=== PATIENT | female | born 1990 | race Caucasian/White ===

== ENCOUNTER → 2021-05-08 14:25 | Outpatient (BNVA) | payer MEDICAID, SELFPAY | PROVIDERS: Family Provider Family Medicine; Visit Provider Nurse Practitioner Women's Health | DX: N92.6 Irregular menstruation, unspecified (principal) | CPT/HCPCS: 81025 ==

== ENCOUNTER → 2021-05-30 09:29 | Outpatient (BNVA) | payer MEDICAID, SELFPAY | PROVIDERS: Family Provider Family Medicine; Visit Provider Nurse Practitioner Women's Health | DX: Z34.80 Encounter for supervision of other normal pregnancy, unspecified trimester (principal) | CPT/HCPCS: 81000 ==

== ENCOUNTER → 2021-06-19 14:54 | Outpatient (BNVA) | payer MEDICAID, SELFPAY | PROVIDERS: Family Provider Family Medicine; Visit Provider Obstetrics & Gynecology | DX: Z34.80 Encounter for supervision of other normal pregnancy, unspecified trimester (principal) | CPT/HCPCS: 80307; 81000; 85027; 86592; 86762; 86803; 86850; 86900; 87086; 87340 ==

== ENCOUNTER → 2021-07-02 10:32 | Outpatient (BNVA) | payer MEDICAID, SELFPAY | PROVIDERS: Family Provider Family Medicine; Visit Provider Obstetrics & Gynecology | DX: Z34.90 Encounter for supervision of normal pregnancy, unspecified, unspecified trimester (principal) | CPT/HCPCS: 84315; 87491; 87591 ==

== ENCOUNTER → 2021-07-25 09:35 | Outpatient (BNVA) | payer MEDICAID, SELFPAY | PROVIDERS: Family Provider Family Medicine; Visit Provider Nurse Practitioner Women's Health | DX: Z34.80 Encounter for supervision of other normal pregnancy, unspecified trimester (principal) | CPT/HCPCS: 81000 ==

== ENCOUNTER → 2021-09-02 13:00 | Outpatient (BNVA) | payer MEDICAID, SELFPAY | PROVIDERS: Family Provider Family Medicine; Visit Provider Obstetrics & Gynecology | DX: Z34.80 Encounter for supervision of other normal pregnancy, unspecified trimester (principal) | CPT/HCPCS: 81000 ==

== ENCOUNTER → 2021-09-17 11:57 | Outpatient (BNVA) | payer MEDICAID, SELFPAY | PROVIDERS: Family Provider Family Medicine; Visit Provider Nurse Practitioner Women's Health | DX: Z34.80 Encounter for supervision of other normal pregnancy, unspecified trimester (principal) | CPT/HCPCS: 81000 ==

== ENCOUNTER → 2021-10-01 13:47 | Outpatient (BNVA) | payer MEDICAID, SELFPAY | PROVIDERS: Family Provider Family Medicine; Visit Provider Obstetrics & Gynecology | DX: Z36.86 Encounter for antenatal screening for cervical length (principal) | CPT/HCPCS: 76817 ==

== ENCOUNTER → 2021-10-15 09:45 | Outpatient (BNVA) | payer MEDICAID, SELFPAY | PROVIDERS: Family Provider Family Medicine; Visit Provider Obstetrics & Gynecology | DX: Z34.80 Encounter for supervision of other normal pregnancy, unspecified trimester (principal) | CPT/HCPCS: 82950; 84315; 85025 ==

== ENCOUNTER → 2021-10-21 08:06 | Outpatient (BNVA) | payer MEDICAID, SELFPAY | PROVIDERS: Family Provider Family Medicine; Visit Provider Obstetrics & Gynecology | DX: Z34.80 Encounter for supervision of other normal pregnancy, unspecified trimester (principal) | CPT/HCPCS: 82951; 82952 ==

== ENCOUNTER → 2021-10-30 10:31 | Outpatient (BNVA) | payer MEDICAID, SELFPAY | PROVIDERS: Family Provider Family Medicine; Visit Provider Obstetrics & Gynecology | DX: Z34.80 Encounter for supervision of other normal pregnancy, unspecified trimester (principal) | CPT/HCPCS: 81000; 87086 ==

== ENCOUNTER → 2021-11-19 10:15 | Outpatient (BNVA) | payer MEDICAID, SELFPAY | PROVIDERS: Family Provider Family Medicine; Visit Provider Obstetrics & Gynecology | DX: Z34.80 Encounter for supervision of other normal pregnancy, unspecified trimester (principal) | CPT/HCPCS: 81000 ==

== ENCOUNTER → 2021-12-10 10:35 | Outpatient (BNVA) | payer MEDICAID, SELFPAY | PROVIDERS: Family Provider Family Medicine; Visit Provider Obstetrics & Gynecology | DX: Z34.80 Encounter for supervision of other normal pregnancy, unspecified trimester (principal); Z3A.00 Weeks of gestation of pregnancy not specified | CPT/HCPCS: 81000 ==

== ENCOUNTER → 2021-12-18 14:12 | Outpatient (BNVA) | payer MEDICAID, SELFPAY | PROVIDERS: Family Provider Family Medicine; Visit Provider Obstetrics & Gynecology | DX: Z34.80 Encounter for supervision of other normal pregnancy, unspecified trimester (principal) | CPT/HCPCS: 81000; 87081 ==

== ENCOUNTER → 2021-12-23 14:43 | Outpatient (BNVA) | payer MEDICAID, SELFPAY | PROVIDERS: Family Provider Family Medicine; Visit Provider Obstetrics & Gynecology | DX: Z34.80 Encounter for supervision of other normal pregnancy, unspecified trimester (principal) | CPT/HCPCS: 81000 ==

== ENCOUNTER 2022-01-01 11:32 | Inpatient (IN) | payer MEDICAID, SELFPAY ==
[2022-01-01] VITALS (37 sets, daily range): BP systolic 89–139; BP diastolic 54–95; PULSE 72–114; RESP 15–18; TEMP 36.1–36.8; O2SAT 90–99; BMI 32.8
[2022-01-01] MEDS: lactated ringers 1,000 ML 999 ML IV (11:15)
[2022-01-01 11:55] LABS: Basophils % 0.3 %; Eosinophils # 0.1 10^3/uL (0.0-0.8); Eosinophils % 0.5 %; Hematocrit 36.5 % (37.0-47.0); Hemoglobin 12.1 g/dL (11.5-15.3); Lymphocytes # 1.5 10^3/uL (0.8-4.8); Lymphocytes % 12.6 %; Mean Corpuscular HGB Conc 33.2 g/dL (30.0-36.0); Mean Corpuscular Hemoglobin 29.4 pg (28.0-34.0); Mean Corpuscular Volume 88.6 fl (81-99); Mean Platelet Volume 9.3 fL (7.4-10.4); Monocytes % 8.3 %; Neutrophils # 9.39 10^3/uL (1.8-7.7); Neutrophils % 77.6 %; Nucleated Red Blood Cells % 0 %; Platelet Count 300 10^3/cmm (130-400); Red Blood Count 4.12 10^6/uL (4.1-5.3); Red Cell Distribution Width 13.9 % (12.1-15.1); White Blood Count 12.1 10^3/uL (4.0-10.0)
--- NOTE | 2022-01-01 12:20 | W.PM.OPSUD ---
Surgery/Procedure H&P Update DATE OF PROCEDURE: January 01, 2022 DATE H&P PERFORMED: 12/23/21 H&P UPDATE INFORMATION: I have reviewed H&P completed within last 30 days, I have examined patient prior to procedure and Changes to prior documentation as noted here CHANGES TO PREVIOUS DOCUMENTATION: The patient presented in active labor. Cervix /-2 PLANNED PROCEDURE: Related Problem List Diagnoses (1) Tobacco use in : Qualifiers: Trimester: first trimester Qualified Code(s): O99.331 - Smoking (tobacco) complicating , first trimester (2) Supervision of other normal :
[2022-01-01] MEDS: lactated ringers 1,000 ML 125 ML IV (12:50)
--- NOTE | 2022-01-01 12:59 | P.ANESASSM_ITS ---
Pre-Anesthetic Assessment Height/Weight: Height 1.55 m Temp Pulse BP Pulse Ox 97.0 F L 73 100/75 90 01/01/22 10:45 01/01/22 12:56 01/01/22 12:56 01/01/22 12:32 Familial anesthetic complications: None Was Beta Anuradha taken within 24 hours: N/A Was Clonidine taken within 24 hours: N/A Social Tobacco and No alcohol Exam alert, oriented x 3, clear to auscultation bilaterally and regular rate & rhythm Airway Submandibular: within normal limits Cervical ROM: within normal limits Mallampati: Class II Dentition: chipped Anesthetic Plan ASA status: 2 Anesthesia: Regional (specify below) (Labor epidural) Risk of > 500 ml blood loss (7ml/kg in children): No Medications/Allergies Home Medications Medication Instructions Recorded Confirmed Last Taken Type prenat.vits,adama,[id number] 1 tab PO DAILY 07/02/21 12/23/21 Unknown History breast pump (Pump In Style #1 ea 10/30/21 12/23/21 Unknown Rx Advanced) calcium carbonate 300 mg (750 mg) 300 mg PO QID PRN tab 12/10/21 12/23/21 Unkno wn History chewable tablet (Tums Extra Strength Smoothies) Allergies Allergy/AdvReac Type Severity Reaction Status Date / Time codeine AdvReac abdomen Verified 12/23/21 14:30 cramping-patient has taken Tylenol 3 without problem Current Medications Generic Name Dose Route Start Last Admin Trade Name Freq PRN Reason Stop Dose Admin Ropivacaine 200 mg in 100 mls @ 13 mls/hr 01/01/22 12:00 01/01/22 12:37 Naropin Premix EPIDURAL 13 mls/hr .Q7H42M CESAR Administration Lactated Ringer's 1,000 mls @ 999 mls/hr 01/01/22 11:54 01/01/22 12:50 Lactated Ringers IV 125 mls/hr .Q1H1M PRN Administration See label comments [facility] Medical History No pertinent past medical history Denies diabetes, asthma, hypertension, seizures, DVT/PE PCP: CASSIE Dang Surgical History History of loop electrical excision procedure (LEEP) (~2008) Hx of cholecystectomy (~2010) Laparoscopic procedure in 2000 Hx of wisdom tooth extraction (~2009) Family History Grandfather Colon cancer Maternal--dx age 60's Heart disease Maternal Hypercholesteremia Maternal Hypertension Maternal Stroke Maternal Family/Other Diabetes Maternal Aunt Grandmother Heart disease Maternal Hypertension Maternal Denies family history of Ovarian cancer Breast cancer Uterine cancer Thyroid disease Data Anesthesia : 01/01/22 11:20 Short CBC 01/01/22 Range/Units 11:20 WBC 12.1 H (4.0-10.0) 10^3/uL Hgb 12.1 (11.5-15.3) g/dL Hct 36.5 L (37.0-47.0) % MCV 88.6 (81-99) fl Plt Count 300 (130-400) 10^3/cmm Neut % (Auto) 77.6 % Neut # (Auto) 9.39 H (1.8-7.7) 10^3/uL Cardiac Studies: No Data to Display
--- NOTE | 2022-01-01 13:04 | ANES.PROC ---
Anesthesia Procedures Procedure/Date: 01/01/22 Epidural: Time Out Performed: Yes Consents Signed: Procedure Consent Consent: requested by attending/covering physician, from patient, risks and benefits reviewed and patient agrees to proceed Lumbar Level: L3-L4 Epidural position: sitting Epidural procedure: sterile prep of area, 1% lidocaine to numb the area, negative for paresthesia passed, neg for paresthesia, test dose given, 1.5% xylocaine 1:200k epi, placed PCEA, no systemic response, sterile dressing applied and 0.2% Ropiavacaine @ mls/hr (13) Additional Comments: JOE at 5cm, cath at 10cm, bolused 5mls 2% lido PF
[2022-01-01] MEDS: oxytocin 30 UNIT/500 ML BAG 600 UNIT IV (13:12)
--- NOTE | 2022-01-01 13:35 | P.PCNOB_ITS ---
Delivery Note: Date of delivery: January 01, 2022 Pre-delivery diagnoses: iup @ 38 weeks and 6 days, active labor Post-delivery diagnoses: same-delivered Procedure: Delivering Physician: kelley Estimated blood loss (mL): 50 Findings: Term female in the PERRY presentation with a single nuchal cord at . Pre-Delivery Course: The patient was admitted in active labor. On admission, she was having decelerations and a fluid bolus was given. That resolved the decelerations. She received an epidural for pain management. Her water broke spontaneously and her cervix was found to be completely dilated. She began to push. Delivery: The patient had complete cervical dilation and began to push. The was a prolonged deceleration to the 60's. I had the patient push continuously until the head delivered. The head delivered in the PERRY position over an intact perineum under epidural anesthesia. The nose and mouth were bulb suctioned. The shoulders and body delivered atraumatically. The baby was placed onto the mother's abdomen. The cord was quickly clamped and cut. The baby was taken for resuscitation. Cord blood was obtained. The placenta delivered spontaneously. It was inspected and found to be intact. Inspection of the perineum revealed lacerations. Estimated blood loss 50 mL. Apgars on baby were 6 at 1 minute and 9 at 5 minutes. Weight of baby is 6 pounds 12 ounces. Mother and baby were stable post delivery. 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
--- NOTE | 2022-01-01 17:51 | ANE.PACU2 ---
Inpatient post-anesthesia follow up: Airway intact: Yes Vital signs: Temperature 97.0 F Pulse Rate 97 Respiratory Rate 15 Blood Pressure 139/75 Pulse Oximetry 90 Oxygen Delivery Me thod Room Air Oxygen Flow Rate Fraction of Inspir ed Oxygen Hydration adequate: Yes Nausea and vomiting: No Pain level: 2 Mental status: Baseline
[2022-01-01] MEDS: benzocaine-menthol 78 gm Canister 1 SPRAY TOPICAL (18:27)
[2022-01-01] MEDS: docusate sodium 100 mg Capsule PO (18:28)
[2022-01-01] MEDS: ibuprofen 800 mg tablet PO ×2 (18:28→20:12)
[2022-01-01] MEDS: lanolin oint 7 gm 1 APPLIC TOPICAL (18:28)
[2022-01-02 03:09] LABS: Hematocrit 30.5 % (37.0-47.0); Hemoglobin 10.4 g/dL (11.5-15.3); Mean Corpuscular HGB Conc 34.1 g/dL (30.0-36.0); Mean Corpuscular Hemoglobin 28.7 pg (28.0-34.0); Mean Corpuscular Volume 84.3 fl (81-99); Mean Platelet Volume 9.7 fL (7.4-10.4); Platelet Count 267 10^3/cmm (130-400); Red Blood Count 3.62 10^6/uL (4.1-5.3); Red Cell Distribution Width 13.5 % (12.1-15.1); White Blood Count 11.9 10^3/uL (4.0-10.0)
[2022-01-02 03:29] VITALS: BP 126/64; PULSE 72; O2SAT 99
[2022-01-02 08:00] VITALS: BP 119/79; PULSE 76; RESP 18; TEMP 36.4; O2SAT 97
--- NOTE | 2022-01-02 08:07 | P.DS_ITS ---
Discharge Providers Date of Admission: 01/01/22 11:32 Date of Discharge: January 02, 2022 Attending Provider at Admission: Ynes Lazaro MD Attending Provider at Discharge: Ynes Lazaro MD Diagnoses at Discharge Discharge Diagnosis (1) Tobacco use in : Status: Acute Qualifiers: Trimester: first trimester Qualified Code(s): O99.331 - Smoking (tobacco) complicating , first trimester (2) Supervision of other normal : Status: Acute Reason for Visit Reason for Visit: Contractions Hospital Course Hospital Course The patient was admitted in active labor. She had spontaneous delivery of a term . She did well and was ready for discharge on day #1 Physical Exam Narrative: The patient is doing well this morning. No concerns. Patient is requesting discharge this morning. Const: COMMON NORMALS: no acute distress, patient oriented x3, no limitations, healthy appearing, alert and well nourished GENERAL APPEARANCE: cooperative, comfortable, well kempt and well developed ORIENTATION/CONSCIOUSNESS: Yes awake, Yes oriented to person, Yes oriented to place and Yes oriented to time Resp: COMMON NORMALS: normal respiratory effort EFFORT & INSPECTION: Yes able to speak in complete sentences GI: COMMON NORMALS: Soft to palpation and non-tender PALPATION: Yes Soft to palpation Extremity: COMMON NORMALS: no calf tenderness Neuro: COMMON NORMALS: patient oriented x3 SENSORIUM/ORIENTATION: Yes alert, Yes oriented to person, Yes oriented to place and Yes oriented to time Psych: APPEARANCE: Yes well kempt Discharge Data Studies Completed and Pending Laboratory Results WBC 11.9 10^3/uL (4.0-10.0) H 01/02/22 02:40 RBC 3.62 10^6/uL (4.1-5.3) L 01/02/22 02:40 Hgb 10.4 g/dL (11.5-15.3) L 01/02/22 02:40 Hct 30.5 % (37.0-47.0) L 01/02/22 02:40 MCV 84.3 fl (81-99) 01/02/22 02:40 MCH 28.7 pg (28.0-34.0) 01/02/22 02:40 MCHC 34.1 g/dL (30.0-36.0) 01/02/22 02:40 RDW 13.5 % (12.1-15.1) 01/02/22 02:40 Plt Count 267 10^3/cmm (130-400) 01/02/22 02:40 MPV 9.7 fL (7.4-10.4) 01/02/22 02:40 Neut % (Auto) 77.6 % 01/01/22 11:20 Lymph % (Auto) 12.6 % 01/01/22 11:20 [place] % (Auto) 8.3 % 01/01/22 11:20 Eos % (Auto) 0.5 % 01/01/22 11:20 Baso % (Auto) 0.3 % 01/01/22 11:20 Neut # (Auto) 9.39 10^3/uL (1.8-7.7) H 01/01/22 11:20 Lymph # (Auto) 1.5 10^3/uL (0.8-4.8) 01/01/22 11:20 [place] # (Auto) 1.0 10^3/uL (0.2-0.9) H 01/01/22 11:20 Eos # (Auto) 0.1 10^3/uL (0.0-0.8) 01/01/22 11:20 Baso # (Auto) 0.0 10^3/uL (0.0-0.1) 01/01/22 11:20 Nucleated RBC % (auto) 0 % 01/01/22 11:20 Nucleated RBCs # 0.0 /100WBC 01/01/22 11:20 Vitals Last Vital Signs Temp 97.5 F L 01/02/22 08:00 Pulse 76 01/02/22 08:00 Resp 18 01/02/22 08:00 BP 119/79 01/02/22 08:00 Pulse Ox 97 01/02/22 08:00 Discharge Plan Discharge Patient Disposition: Home Condition: Stable Prescriptions: Continued calcium carbonate [Tums Extra Strength Smoothies] 300 mg (750 mg) tablet,chewable 300 mg PO QID PRN (Reason: Acid Reflux) 0RF prenat.vits,adama,emj-jajy-upbnl Tablet 1 tab PO DAILY 0RF (DME) breast pump [Pump In Style Advanced] Device See Rx Instructions .MEDSUPPLY Qty: 1 0RF Rx Instructions: As directed Discharge Orders: Discharge Order (Routine); Ordered 01/02/22 Ordered By: Ynes Lazaro Patient Instructions: Depression (DC), Bleeding (DC), Preeclampsia and Eclampsia After Delivery (GEN), OB Discharge Report, OB Food/Drug Interaction Guide, OB Care at Home, Opioid Safety, OB Home Care, OB Proud Parent Packet, OB Vaginal Deliveries - [facility], Abnormal Bleeding Discharge Attestations Time Spent in Discharge Care*: less than 30 min Quality Metrics Clinical Quality Measures [ No reported AMI, CVA or VTE this stay] Coding Level of Care Code Acute Chg FW DC note Diagnoses Tobacco use in O99.331 Trimester: first trimester Supervision of other normal Z34.80
[2022-01-02] MEDS: prenatal vitamin Capsule 1 CAP PO (09:16)
[2022-01-02] MEDS: ibuprofen 800 mg tablet PO (09:16)
[2022-01-02] MEDS: docusate sodium 100 mg Capsule PO (09:16)
[2022-01-02 10:00] VITALS: BP 120/76; PULSE 89; RESP 17; TEMP 36.8; O2SAT 96
[2022-01-02 14:36] VITALS: BP 123/82; PULSE 76; RESP 18; TEMP 36.8; O2SAT 98
[2022-01-02 14:37] VITALS: BP 123/82; PULSE 76; RESP 18; TEMP 36.8; O2SAT 98
== END 2022-01-02 15:15 | disposition home or self-care (01) | DRG 807 ==
LOC: OPOB 11:39 → OBGYN 11:39
PROVIDERS: Admitting Provider Obstetrics & Gynecology; Family Provider Family Medicine; Visit Provider Obstetrics & Gynecology
DX: O99.334 Smoking (tobacco) complicating childbirth (principal); Z37.0 Single live birth; O76 Abnormality in fetal heart rate and rhythm complicating labor and delivery; O69.9XX0 Labor and delivery complicated by cord complication, unspecified, not applicable or unspecified; Z3A.38 38 weeks gestation of pregnancy
CPT/HCPCS: 36415; 59025; 59409; 85025; 85027; 99211; J2795

== ENCOUNTER → 2022-02-19 13:23 | Outpatient (BNVA) | payer MEDICAID, SELFPAY | PROVIDERS: Family Provider Family Medicine; Visit Provider Obstetrics & Gynecology | DX: Z12.4 Encounter for screening for malignant neoplasm of cervix (principal) | CPT/HCPCS: 87624 ==

== ENCOUNTER → 2022-03-26 15:33 | Outpatient (BNVA) | payer MEDICAID, SELFPAY | PROVIDERS: Family Provider Family Medicine; Visit Provider Nurse Practitioner Family | DX: R10.9 Unspecified abdominal pain (principal) | CPT/HCPCS: 81000 ==

== ENCOUNTER 2022-08-13 08:54 | Day surgery (SDC) | payer MEDICAID, SELFPAY ==
[2022-08-11 09:11] VITALS: BMI 29.6
--- NOTE | 2022-08-11 09:36 | P.ANESASSM_ITS ---
Pre-Anesthetic Assessment Height/Weight: Height 1.55 m Weight 71.214 kg Preop Diagnosis: Desire permanent sterilization Operation Date: 08/13/22 10:40 Proposed Procedures p Laparoscopic bilateral salpingectomy 83041,Z30.2(Bilateral) - John Hernandez MD Familial anesthetic complications: None Social Tobacco and No alcohol Exam alert, oriented x 3, clear to auscultation bilaterally and regular rate & rhythm Airway Mallampati: Class II Dentition: chipped Pulmonary None reported CV/HEM None reported None reported Hepatic None reported GI None reported Metabolic None reported Musc/skel None reported Neuropsych None reported Anesthetic Plan ASA status: 1 Anesthesia: General Risk of > 500 ml blood loss (7ml/kg in children): No Medications/Allergies Home Medications Medication Instructions Recorded Confirmed Last Taken Type No Known Home Medications 07/11/22 08/11/22 Unknown History Allergies Allergy/AdvReac Type Severity Reaction Status Date / Time codeine AdvReac abdomen Verified 08/11/22 09:07 cramping-patient has taken Tylenol 3 without problem [facility] Anesthesia Medical History No pertinent past medical history Denies diabetes, asthma, hypertension, seizures, DVT/PE PCP: CASSIE Dang Surgical History History of loop electrical excision procedure (LEEP) (~2008) Hx of cholecystectomy (~2010) Laparoscopic procedure in 2000 Hx of wisdom tooth extraction (~2009) Family History Grandfather Colon cancer Maternal--dx age 60's Heart disease Maternal Hypercholesteremia Maternal Hypertension Maternal Stroke Maternal Family/Other Diabetes Maternal Aunt Grandmother Heart disease Maternal Hypertension Maternal Denies family history of Ovarian cancer Breast cancer Uterine cancer Thyroid disease Social History (Updated 03/26/22 @ 15:21 by Lena Peter LPN) Smoking and tobacco status: current every day smoker cigarettes Packs smoked per day: 0.5 Alcohol intake: never Female Reproductive History Date of last menstrual period: 08/03/22 Data Anesthesia Cardiac Studies: No Data to Display
[2022-08-11 09:58] LABS: Basophils # 0.1 10^3/uL (0.0-0.1); Basophils % 0.9 %; Eosinophils # 0.1 10^3/uL (0.0-0.8); Hematocrit 42.4 % (37.0-47.0); Hemoglobin 14.3 g/dL (11.5-15.3); Lymphocytes % 28.6 %; Mean Corpuscular HGB Conc 33.7 g/dL (30.0-36.0); Mean Corpuscular Hemoglobin 29.6 pg (28.0-34.0); Mean Corpuscular Volume 87.8 fl (81-99); Monocytes # 0.8 10^3/uL (0.2-0.9); Monocytes % 10.9 %; Neutrophils # 3.91 10^3/uL (1.8-7.7); Neutrophils % 57.2 %; Nucleated Red Blood Cells % 0 %; Platelet Count 327 10^3/cmm (130-400); Red Blood Count 4.83 10^6/uL (4.1-5.3); Red Cell Distribution Width 12.6 % (12.1-15.1); White Blood Count 6.9 10^3/uL (4.0-10.0)
[2022-08-11 10:18] LABS: Alanine Aminotransferase 20 U/L (0-33); Albumin Level 4.1 g/dL (3.5-5.2); Alkaline Phosphatase 71 U/L (35-105); Anion Gap 16.2 (5-19); Aspartate Amino Transferase 15 U/L (0-32); Bilirubin Urine Neg (Negative); Blood Urea Nitrogen 13 mg/dL (6-20); Blood Urine Neg (Negative); Calcium 9.2 mg/dL (8.5-10.5); Carbon Dioxide 22 mmol/L (22-29); Chloride 105 mmol/L (98-107); Globulin 2.9 g/dL (1.3-4.6); Glomerular Filtration Rate 96.4 mL/min (90-130); Glucose 105 mg/dL (65-115); Glucose Urine UA Norm (Normal); Ketones Urine 1+ (Negative); Nitrate Urine Negative (Negative); Osmolality Calculated 288 mOsm/kg (285-295); Potassium 4.2 mmol/L (3.5-5.1); Protein Urine Neg (Negative); Sodium 139 mmol/L (136-145); Specific Gravity, Urine 1.025 (1.005-1.030); Total Bilirubin 0.3 mg/dL (0.15-1.2); Urine Appearance Clear (CLEAR); Urine Color Yellow (Yellow); Urobilinogen Urine Norm (Negative); pH Urine 5 (5-7)
[2022-08-11 10:19] LABS: Add Urine Microscopic? YES; Leukocyte Esterase Urine Trace (Negative)
[2022-08-11 10:20] LABS: WBC Urine 0-4 /hpf (0-5)
[2022-08-11 10:21] LABS: Add Urine Culture? No; Bacteria Urine TRACE /hpf; Squamous Epithelial Cell Urine 0-4 /hpf (0-5)
[2022-08-13] VITALS (8 sets, daily range): BP systolic 90–135; BP diastolic 51–84; PULSE 69–97; RESP 15–18; TEMP 36.4–36.6; O2SAT 94–100
[2022-08-13 09:16] LABS: OR HCG Qualitative Urine Negative (Negative)
[2022-08-13] MEDS: scopolamine 1.5 Patch 1 PATCH TRANSDERMA (09:20)
[2022-08-13] MEDS: sodium chloride 0.9% 500 ML IV (09:28)
--- NOTE | 2022-08-13 09:41 | P.ANESUD_ITS ---
Pre-Anesthetic Update Pre-Anesthetic Assessment: Date of Surgery/Procedure: 08/13/22 Preop Mamta gnosis: Desire permanent sterilization Proposed Procedure: Operation Date: 08/13/22 10:40 Proposed Procedures p Laparoscopic bilateral salpingectomy 37491,Z30.2(Bilateral) - John Hernandez MD Any changes to Pre-Anesthetic Assessment?: No Last Intake: Intake Last Liquid Date 08/12/22 Last Liquid Time 23:00 Last Solid Date 08/12/22 Last Solid Time 18:30 Labs Last 48hrs: Short CBC 08/11/22 Range/Units 09:25 WBC 6.9 (4.0-10.0) 10^3/ uL Hgb 14.3 (11.5-15.3) g/dL Hct 42.4 (37.0-47.0) % MCV 87.8 (81-99) fl Plt Count 327 (130-400) 10^3/c mm Neut % (Auto) 57.2 % Neut # (Auto) 3.91 (1.8-7.7) 10^3/u L BMP 08/11/22 09:25 Sodium 139 Potassium 4.2 Chloride 105 Carbon Dioxide 22 BUN 13 Creatinine 0.7 Glucose 105 Calcium 9.2 Liver Function 08/11/22 Range/Units 09:25 Total Bilirubin 0.3 (0.15-1.2) mg/dL AST 15 (0-32) U/L ALT 20 (0-33) U/L Alkaline Phosphata se 71 (35-105) U/L Albumin 4.1 (3.5-5.2) g/dL Urine 08/11/22 Range/Units 09:25 Urine Color Yellow (Yellow) Urine Appearance Clear (CLEAR) Urine pH 5 (5-7) Ur Specific Gravit y 1.025 (1.005-1.030) Urine Protein Neg (Negative) Urine Glucose (UA) Norm (Normal) Urine Ketones 1+ H (Negative) Urine Nitrate Negative (Negative) Urine Bilirubin Neg (Negative) Ur Leukocyte [place] Trace H (Negative) Urine RBC None (0-2) /hpf Urine WBC 0-4 H (0-5) /hpf Blood Bank 08/11/22 09:25 Blood Type O Positive Rho(D) Type Positive Antibody Screen Negative Vitals: Temperature 97.9 F 08/13/22 09:20 Temperature Source Temporal Artery S can 08/13/22 09:20 Pulse Rate 92 08/13/22 09:20 Respiratory Rate 15 08/13/22 09:20 Blood Pressure 135/84 08/13/22 09:20 Blood Pressure Arminda n 101 08/13/22 09:20 Pulse Oximetry 96 08/13/22 09:20 Oxygen Delivery Me thod 08/13/22 09:20 Exam: Pre-Anes Outpt Exam: alert, oriented x 3, clear to auscultation bilaterally and regular rate & rhythm Cardiac Studies: No Data to Display
[2022-08-13] MEDS: sodium chloride 0.9% 1,000 ML 30 ML IV (10:31)
[2022-08-13] MEDS: ceFAZolin 2,000 MG in sodium chloride 0.9% (plus) 50 ML 100 MG IV (10:37)
--- NOTE | 2022-08-13 10:44 | W.PM.OPSUD ---
Surgery/Procedure H&P Update DATE OF PROCEDURE: August 13, 2022 DATE H&P PERFORMED: 08/11/22 H&P UPDATE INFORMATION: I have reviewed H&P completed within last 30 days, I have examined patient prior to procedure and No changes to prior documentation PREOP DIAGNOSIS: Desire permanent sterilization PLANNED PROCEDURE: Operation Date: 08/13/22 10:40 Proposed Procedures p Laparoscopic bilateral salpingectomy 53481,Z30.2(Bilateral) - John Hernandez MD
--- NOTE | 2022-08-13 11:28 | P.OP_ITS ---
Operative Report Date of procedure: August 13, 2022 Pre-op diagnosis: Preop Diagnosis Desire permanent sterilization Post-op diagnosis: Same as above Procedure done: Laparoscopic bilateral salpingectomy Specimens removed/disposition: Left and right fallopian tube Surgeon: John Hernandez MD Estimated blood loss (mL): 1 IV fluids (mL): 600 Urine output (mL): 50 Procedure: After informed consent, the patient was taken to the operating room where gener al anesthesia was administered. She was placed in the dorsal lithotomy position and prepped and draped in sterile fashion. Pre-Procedure Time-Out verifying the correct patient identity, correct procedure verified with consent, correct site and side, correct patient position, availability of correct implants and any special equipment or requirements was performed and acknowledge by the OR team. The patient was examined under anesthesia and found to have a normal uterus with normal adnexa. A weighted speculum was placed in the vagina, and the anterior lip of cervix was grasped with the single toothed tenaculum. A uterine manipulator was advanced into the endocervical canal and uterus. The tenaculum was removed after uterine manipulator was secured. The speculum was removed from the vagina. An intraumbilical incision was made with a scalpel. While tenting up on the abdomen, a Verres needle was admitted into the intra-abdominal cavity. A saline drop test was performed and noted to be within normal limits. Pneumoperitoneum was attained with 4 liters of carbon dioxide. The Verres needle was removed. A 5 mm Opitc view trocar and sleeve were admitted into the abdomen and laparoscopic confirmation of location was achieved. A second incision was made 3 cm above the symphysis pubis, and a 5 mm trocar sleeves were admitted into the abdomen under direct laparoscopic visualization without complication. A survey revealed normal abdominal anatomy. A 5 mm blunt probe was advanced through the second trocar sleeve, and light manipulation of ovaries and uterus to assess the posterior aspects was performed. The pelvic survey shows normal uterus, left and right adnexa. The rigth ovary was noted with a follicular cyst. The patient was placed into Trendelenburg position. The fallopian tubes were inspected bilaterally and the fimbriated ends of the fallopian tubes were visualized bilaterally. Attention was then directed to the right side. The fallopian tube and mesosalpinx were grasped and the underlying mesosalpinx was cauterized and cut using the Voyant device. Serial cauterization and cutting was used to separate the fallopian tube from the underlying mesosalpinx until it could be amputated cutting it approximated 2 cm from the cornua. Attention was then turned to the contralateral fallopian tube, which was removed in similar fashion. Both specimens were removed through the trocar and sent to pathology. The instruments were removed. The suprapubic trocar port was removed under direct visualization insuring good hemostasis. The carbon dioxide was allowed to escape from the abdomen. The intraumbilical trocar sleeve was withdrawn under visualization with laparoscope in the sleeve to insure hemostasis. The skin incisions were closed with 3-O Monocryl subcuticular stich and Dermabond. Incision site was infiltrated with lidocaine with epi. The instruments were removed from the vagina, and excellent hemostasis was noted. The patient tolerated the procedure well, and sponge, lap and needle count were correct times two. The patient was taken to the recovery room in good condition.
[2022-08-13] MEDS: guaiFENesin-dextromethorphan UDC 10 mL 5 ML PO (12:20)
--- NOTE | 2022-08-13 12:43 | ANE.PACU2 ---
Inpatient post-anesthesia follow up: Airway intact: Yes Vital signs: Temperature 98 F Pulse Rate 97 Respiratory Rate 16 Blood Pressure 105/59 Pulse Oximetry 95 Oxygen Delivery Me thod Room Air Oxygen Flow Rate 6 Fraction of Inspir ed Oxygen Hydration adequate: Yes Nausea and vomiting: No Pain level: 1 Mental status: Baseline
== END 2022-08-13 13:20 | disposition home or self-care (01) ==
PROVIDERS: Visit Provider Obstetrics & Gynecology
PROC: (CPT 58661; principal; 2022-08-13 10:30)
DX: Z30.2 Encounter for sterilization (principal); F17.210 Nicotine dependence, cigarettes, uncomplicated
CPT/HCPCS: 58661; 36415; 80053; 81001; 81025; 84703; 85025; 86850; 86900; 88302; J0690; J1100; J1170; J2250; J2405; J2704; J3010; J3490; J7030; J7040

== ENCOUNTER → 2022-11-27 12:59 | Outpatient (BNVA) | payer MEDICAID, SELFPAY | PROVIDERS: Visit Provider Orthopaedic Surgery | DX: M54.9 Dorsalgia, unspecified (principal) | CPT/HCPCS: 72070 ==

== ENCOUNTER → 2023-04-02 16:30 | Outpatient (BNVA) | payer MEDICAID, SELFPAY | PROVIDERS: PCP Nurse Practitioner Family; Visit Provider Nurse Practitioner Family | DX: E55.9 Vitamin D deficiency, unspecified (principal); R53.83 Other fatigue; E53.8 Deficiency of other specified B group vitamins | CPT/HCPCS: 80053; 82306; 82607; 82672; 84144; 84443; 85025 ==

== ENCOUNTER → 2025-08-14 10:12 | Outpatient (BNVA) | payer MEDICAID, SELFPAY | PROVIDERS: PCP Nurse Practitioner Family; Visit Provider Nurse Practitioner Family | DX: R09.89 Other specified symptoms and signs involving the circulatory and respiratory systems (principal); R53.83 Other fatigue; R68.89 Other general symptoms and signs | CPT/HCPCS: 87400; 87426 ==